=== PATIENT | male | born 1950 | race Caucasian/White ===

== ENCOUNTER → 2021-01-15 | Outpatient (CLI) | payer MEDICARE ==
[~2021-01-15] MED LIST: IOHEXOL 240 MG/ML 50ML VIAL. ONE; IOHEXOL 300 MG/ML 75 ML VIAL. IV ONE
[2021-01-15 09:51] LABS: CREATININE 1.1 mg/dL (0.7-1.3)
--- NOTE | 2021-01-15 12:19 | RAD ---
Examination: CT of the abdomen pelvis with oral and IV contrast HISTORY: History of generalized abdominal pain, abdominal aortic aneurysm COMPARISON: None available TECHNIQUE: Axial CT images of the abdomen pelvis were performed with oral and IV contrast. Coronal an d sagittal reformats are performed Exposure: One or more of the following individualized dose reduction techniques were utilized for thi s examination: 1. Automated exposure control 2. Adjustment of the mA and/or kV according to patient size 3. Use of iterative reconstruction technique FINDINGS: The bibasilar lungs are clear. No evidence of free air identified in the abdomen. Mild decreased attenuation noted in the liver likely hepatic steatosis. Tiny subcentimeter cysts iden tified in the liver. The spleen, adrenals grossly appears unremarkable. The stomach is mildly distend ed. The visualized pancreas grossly appears unremarkable. The small bowel is nondilated. Feces and ga s noted in the colon. The appendix is normal. The bladder is mildly distended. Faint fat stranding id entified about the urinary bladder. The bilateral kidneys enhance symmetrically. 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 Moderate degenerative changes lumbar spine. IMPRESSION: 1. Infrarenal abdominal aortic aneurysm measuring 4.9 cm with moderate eccentric mural thrombus iden tified in the intrarenal abdominal aorta causing greater than [address] angiog jolene for further evaluation 2. Faint fat stranding identified about the urinary bladder could be due to nondistention or cystiti s. Correlate with lab values. 3. Hepatic steatosis. Electronically signed by: Roderick Garcia MD (01/15/2021 12:17 PM) [id number]
== END ==
LOC: CT 09:14
PROVIDERS: ATTEND Internal Medicine Gastroenterology
DX: K76.0 Fatty (change of) liver, not elsewhere classified (principal); I71.4 Abdominal aortic aneurysm, without rupture; R10.9 Unspecified abdominal pain; K76.89 Other specified diseases of liver; I74.09 Other arterial embolism and thrombosis of abdominal aorta; N32.89 Other specified disorders of bladder
CPT/HCPCS: 36415; 74177; 82565; 84520; Q9967